=== PATIENT | male | born 1980 | race Caucasian/White ===

== ENCOUNTER 2018-04-29 13:29 | Emergency (ER) | payer OTHER ==
[~2018-04-29] VITALS: Ht 167.6 cm; Wt 101.1 kg
[2018-04-29 13:40] VITALS: BP 143/98
[2018-04-29] MEDS ORDERED: KETOROLAC 30 MG/1 ML IM ONE (14:30)
[2018-04-29] MEDS ORDERED: METHOCARBAMOL 750 MG TABLET PO ONE (14:30)
[2018-04-29] MEDS ORDERED: KETOROLAC 30 MG/1 ML ONE (14:38)
[2018-04-29] MEDS ORDERED: METHOCARBAMOL 750 MG TABLET ONE (14:38)
== END 2018-04-29 15:38 | disposition home or self-care (01) ==
LOC: ED 14:30
DX: M62.830 Muscle spasm of back (principal); M25.511 Pain in right shoulder
CPT/HCPCS: 72072; 72125; 73030; 96372; 99284; J1885